=== PATIENT | female | born 1990 | race Caucasian/White ===

== ENCOUNTER → 2017-08-27 | Outpatient (CLI) | payer BC ==
[2017-08-27 13:36] LABS: A TYPE INFLUENZA AG NEGATIVE (NEGATIVE); B INFLUENZA AG NEGATIVE (NEGATIVE)
== END ==
LOC: OD 12:42
PROVIDERS: ATTEND Nurse Practitioner Acute Care
DX: R68.89 Other general symptoms and signs (principal)
CPT/HCPCS: 87804

== ENCOUNTER 2018-01-06 11:28 | Outpatient (CLI) | payer BC, OTHER | END 2018-01-06 12:39 | disposition home or self-care (01) | LOC: LC 11:28 | PROVIDERS: ATTEND Obstetrics & Gynecology | PROC: 4A1HXCZ Monitoring of Products of Conception, Cardiac Rate, External Approach (ICD-10-PCS; principal; 2018-01-06) | DX: O10.913 Unspecified pre-existing hypertension complicating pregnancy, third trimester (principal); Z3A.32 32 weeks gestation of pregnancy | CPT/HCPCS: 59025 ==

== ENCOUNTER 2018-01-14 17:33 | Outpatient (CLI) | payer BC ==
--- NOTE | 2018-01-14 17:44 | Non Stress Test Report ---
Non Stress Test Datetime Report Generated by CPN: 01/14/2018 17:43 DEMOGRAPHIC EGA NST: 33.4 EGA NST: 32.4 INDICATION Indication for Study: Gestational Hypertension; Diabetes Mellitus; Ordered by Provider Indication for Study: Diabetes Mellitus; Chronic Hypertension MONITORING Monitor Explained: Monitor Explained; Test Explained; Patient Verbalized Understanding Time on Monitor: 01/13/2018 16:04 Time on Monitor: 01/06/2018 11:37 Time off Monitor: 01/13/2018 17:54 NST Duration: 110 NST INTERVENTIONS NST Interventions: PO Hydration; Reposition Patient NST Interventions: PO Hydration; Reposition Patient Physician Notified NST: DrPeyton Santizo BABY A: [id number] BABY A Movement : Present Contraction Frequency : none FHR Baseline : 135 Accelerations : 15X15 Decelerations : None Variability : Moderate 6-25bpm NST Review: Meets Criteria for Reactive NST NST Review: Meets Criteria for Reactive NST NST Review and Verified By : Nakul Murrieta RN NST Results: Reactive NST REPORT Report Trigger: Send Report
[2018-01-14 18:23] LABS: URINE PROTEIN 14.4 mg/dL (<12)
[2018-01-14 18:25] LABS: 24 HOUR URINE PROTEIN RESULT 138 mg/day (42-225)
== END 2018-01-14 18:36 | disposition home or self-care (01) ==
LOC: LC 17:33
PROVIDERS: ATTEND Obstetrics & Gynecology
PROC: 4A1HXCZ Monitoring of Products of Conception, Cardiac Rate, External Approach (ICD-10-PCS; principal; 2018-01-14)
DX: O24.419 Gestational diabetes mellitus in pregnancy, unspecified control (principal); O10.913 Unspecified pre-existing hypertension complicating pregnancy, third trimester; Z3A.32 32 weeks gestation of pregnancy
CPT/HCPCS: 59025; 84156

== ENCOUNTER 2018-01-22 12:24 | Outpatient (CLI) | payer BC ==
[2018-01-22 13:16] LABS: APPEARANCE,URINE CLEAR; BILIRUBIN,URINE NEGATIVE (NEGATIVE); COLOR,URINE YELLOW; GLUCOSE, URINE NEGATIVE (NEGATIVE); KETONES,URINE NEGATIVE (NEGATIVE); LEUKOCYTE ESTERASE,URINE TRACE (NEGATIVE); NITRITE,URINE NEGATIVE (NEGATIVE); PROTEIN,URINE 30 mg/dL (NEGATIVE); URINE SPECIFIC GRAVITY 1.016; UROBILINOGEN,URINE NEGATIVE mg/dL (<2.0)
[2018-01-22 13:35] LABS: URINE AMPHETAMINES SCREEN NEGATIVE; URINE BARBITURATES SCREEN NEGATIVE; URINE BENZODIAZEPINES SCREEN NEGATIVE; URINE COCAINE SCREEN NEGATIVE; URINE MARIJUANA (THC) SCREEN NEGATIVE; URINE METHADONE SCREEN NEGATIVE; URINE PHENCYCLIDINE SCREEN NEGATIVE
--- NOTE | 2018-01-22 13:45 | Non Stress Test Report ---
Non Stress Test Datetime Report Generated by CPN: 01/22/2018 13:45 DEMOGRAPHIC Test Number: 4 EGA NST: 34.6 INDICATION Indication for Study: Ordered by Provider MONITORING Monitor Explained: Monitor Explained; Test Explained; Patient Verbalized Understanding Time on Monitor: 01/22/2018 12:43 Time off Monitor: 01/22/2018 13:18 NST Duration: 35 NST INTERVENTIONS NST Interventions: None Physician Notified NST: Dr. Alverto BABY A: [id number] BABY A Movement : Present Contraction Frequency : 2-3 FHR Baseline : 140 Accelerations : 15X15 Decelerations : None Variability : Moderate 6-25bpm NST Review: Meets Criteria for Reactive NST NST Review and Verified By : Kristian Burdick RN NST Results: Reactive NST REPORT Report Trigger: Send Report
[2018-01-22 13:58] LABS: AMNISURE (ROM) NEGATIVE (NEGATIVE)
[2018-01-22] MEDS ORDERED: RINGERS SOLUTION,LACTATED 1,000 ML IV PRN (14:08)
[2018-01-22] MEDS ORDERED: TERBUTALINE SULFATE INJ/PF 1 MG/1 ML SDV SUBCUT ONE (14:08)
[2018-01-22] MEDS ORDERED: TERBUTALINE SULFATE INJ/PF 1 MG/1 ML SDV ONE (14:24)
[2018-01-22] MEDS ORDERED: HYDROXYZINE PAMOATE 50 MG CAPSULE PO ONE (16:05)
[2018-01-22] MEDS ORDERED: HYDROXYZINE PAMOATE 50 MG CAPSULE ONE (16:12)
== END 2018-01-22 16:35 | disposition home or self-care (01) ==
LOC: LC 12:24
PROVIDERS: ATTEND Obstetrics & Gynecology
PROC: 4A1HXCZ Monitoring of Products of Conception, Cardiac Rate, External Approach (ICD-10-PCS; principal; 2018-01-22)
DX: O60.03 Preterm labor without delivery, third trimester (principal); Z3A.34 34 weeks gestation of pregnancy
CPT/HCPCS: 59025; 84112; 81001; 80307; J3105

== ENCOUNTER 2018-01-23 16:11 | Inpatient (IN) | payer BC ==
--- NOTE | 2018-01-23 17:24 | Non Stress Test Report ---
Non Stress Test Datetime Report Generated by CPN: 01/23/2018 17:24 DEMOGRAPHIC Test Number: 5 EGA NST: 35.0 INDICATION Indication for Study: Ordered by Provider MONITORING Monitor Explained: Monitor Explained; Test Explained; Patient Verbalized Understanding Time on Monitor: 01/23/2018 16:38 Time off Monitor: 01/23/2018 17:21 NST Duration: 43 NST INTERVENTIONS NST Interventions: None Physician Notified NST: Dr. Jacobo BABY A: [id number] BABY A Movement : Present Contraction Frequency : Occ FHR Baseline : 145 Accelerations : 15X15 Decelerations : None Variability : Moderate 6-25bpm NST Review: Meets Criteria for Reactive NST NST Review and Verified By : Norah Harrison RN NSBrenton Results: Reactive NST REPORT Report Trigger: Send Report
[2018-01-23] MEDS ORDERED: ACETAMINOPHEN 325 MG TABLET ONE (17:40)
[2018-01-23 17:41] LABS: APPEARANCE,URINE SLIGHTLY-CLOUDY; BILIRUBIN,URINE NEGATIVE (NEGATIVE); COLOR,URINE YELLOW; GLUCOSE, URINE 50 mg/dL (NEGATIVE); KETONES,URINE TRACE mg/dL (NEGATIVE); LEUKOCYTE ESTERASE,URINE MODERATE (NEGATIVE); NITRITE,URINE NEGATIVE (NEGATIVE); PROTEIN,URINE 100 mg/dL (NEGATIVE); URINE SPECIFIC GRAVITY 1.026
[2018-01-23 17:53] LABS: URINE AMPHETAMINES SCREEN NEGATIVE; URINE BARBITURATES SCREEN NEGATIVE; URINE BENZODIAZEPINES SCREEN NEGATIVE; URINE COCAINE SCREEN NEGATIVE; URINE MARIJUANA (THC) SCREEN NEGATIVE; URINE METHADONE SCREEN NEGATIVE; URINE PHENCYCLIDINE SCREEN NEGATIVE
[2018-01-23 18:04] LABS: ABSOLUTE EOSINOPHILS # (AUTO) 0.1 10^3/uL (0.0-0.6); ABSOLUTE LYMPHOCYTES (AUTO) 1.5 10^3/uL (0.5-4.7); ABSOLUTE MONOCYTES (AUTO) 0.5 10^3/uL (0.1-1.4); BASOPHILS % (AUTO) 0.2 % (0-2); HEMATOCRIT 28.1 % (36.0-47.0); HEMOGLOBIN 9.5 g/dL (12.0-15.5); LYMPHOCYTES % (AUTO) 21.2 % (13-45); MEAN CORPUSCULAR HEMOGLOBIN 27.3 pg (27.0-33.4); MEAN CORPUSCULAR HGB CONC 33.9 g/dL (32.0-36.0); MEAN CORPUSCULAR VOLUME 81 fl (80-97); MONOCYTES % (AUTO) 7.5 % (3-13); PLATELET COUNT 288 10^3/uL (150-450); RED BLOOD COUNT 3.48 10^6/uL (3.72-5.28); RED CELL DISTRIBUTION WIDTH 15.4 % (11.5-14.0); SEGMENTED NEUTROPHILS % (AUTO) 70.1 % (42-78); TOTAL CELLS COUNTED % (AUTO) 100 %; WHITE BLOOD COUNT 7.1 10^3/uL (4.0-10.5)
[2018-01-23 18:12] LABS: ALANINE AMINOTRANSFERASE 19 U/L (9-52); ALBUMIN 3.2 g/dL (3.5-5.0); ALKALINE PHOSPHATASE 113 U/L (38-126); ANION GAP 10 (5-19); ASPARTATE AMINO TRANSFERASE 16 U/L (14-36); BILIRUBIN,DIRECT 0.3 mg/dL (0.0-0.4); BILIRUBIN,TOTAL 0.4 mg/dL (0.2-1.3); BLOOD UREA NITROGEN 7 mg/dL (7-20); CALCIUM 8.4 mg/dL (8.4-10.2); CARBON DIOXIDE 22 mmol/L (22-30); CHLORIDE 110 mmol/L (98-107); GLUCOSE 73 mg/dL (75-110); LDH OLD 335 U/L (313-618); POTASSIUM 4.3 mmol/L (3.6-5.0); TOTAL PROTEIN 5.8 g/dL (6.3-8.2)
[2018-01-23 18:13] LABS: UR PRO/CREAT RATIO RESULT 0.2 mg/mg (0.0-0.2); URINE CREATININE 205.7 mg/dL (16-327); URINE PROTEIN 30.9 mg/dL (<12)
[2018-01-23] MEDS ORDERED: PROMETHAZINE HCL 25 MG TABLET PO ONE (18:43)
[2018-01-23] MEDS ORDERED: PROMETHAZINE HCL 25 MG TABLET ONE (18:54)
[2018-01-23] MEDS ORDERED: MAGNESIUM SULFATE 20 GM/500 ML RTUINJ IV ONE (20:44)
[2018-01-23] MEDS ORDERED: LABETALOL HCL 200 MG TABLET ONE (20:44)
[2018-01-23] MEDS ORDERED: MAGNESIUM SULFATE 4 GM/100 ML RTUPB IV ONE ×2 (20:44→21:00)
[2018-01-23] MEDS ORDERED: MAGNESIUM SULFATE 20 GM/500 ML RTUINJ IV PRN (21:00)
[2018-01-23] MEDS ORDERED: DINOPROSTONE 10 MG VAGINAL INSERT.SR PV ONE (21:00)
--- NOTE | 2018-01-23 21:02 | Admission Physical ---
Datetime Report Generated by CPN: 01/23/2018 21:02 CURRENT ADMISSION Chief Complaint Other: Headache Indication for Induction: PreEclampsia Admit Impression : , Intrauterine Admit Plan: Admit to Unit; Initiate Labor Induction Protocol Admit Plan- Other: Begin Magnesium ALLERGIES Medication Allergies: No Medication Allergies: No Known Allergies (01/23/2018) Latex: No Latex Allergies Food Allergies: none Environmental Allergies: none OBSTETRICAL HISTORY EDC: 02/27/2018 00:00 : 2 Para: 1 Term: 0 : 1 SAB: 0 IAB: 0 Ectopic: 0 Livin Cesareans: 0 VBACs: 0 Multiple Births: 0 Gestational Diabetes: Yes Rh Sensitization: No Incompetent Cervix: No MICKY: No Infertility: No ART Treatment: No Uterine Anomaly: No IUGR: No Hx Previous C/S: No Macrosomia: No Hx Loss/Stillborn: No PIH: Yes Hx : No Placenta Previa/Abruption: No Depression/PP Depression: No PTL/PROM: No Post Hemorrhage: No Current Procedures: Ultrasound; NST Obstetrical History Comments: G1- Severe Pre-E, IOL 33 weeks G2- Current SEE RECORDS Alcohol: No Marijuana : No Cocaine: No Other Illicit Drugs: No Cigarettes: Never Smoker. 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 Surgery: No Heart Disease: No Hosp/Surgery: Yes Autoimmune Disorder: No Anesthetic Complications: No Kidney Disease: No Abnormal Pap Smear: Yes Neuro/Epilepsy: No Psychiatric Disorders: No Other Medical Diseases: No Hepatitis/Liver Disease: No Significant Family History: No Varicosities/Phlebitis: No Trauma/Violence : No Thyroid Dysfunction: No Medical History Comments: appendectomy 2008, childbirth, hx ab pap in 2014 INFECTIOUS HISTORY Gonorrhea: No Genital Herpes: No Chlamydia: Yes Tuberculosis: No Syphilis: No Hepatitis: No HIV/AIDS Exposure: No Rash or Viral Illness: No HPV: No Infectious History Comments: PHYSICAL EXAM General: Normal HEENT: Normal Neurologic: Normal Thyroid: Normal Heart: Normal Lungs: Normal Breast: Deferred Back: Normal Abdomen: Normal Genitourinary Exam: Normal Extremities: Normal DTRs: Normal Pelvic Type: Adequate Vital Signs: Reviewed VAGINAL EXAM Dilatation: 1 Effacement: 50 Station: -2 MEMBRANES Pooling: Negative Membranes: Intact FETUS A Monitoring: External US FHR- Baseline: 160 Variability: Moderate 6-25bpm Decelerations: None FHR Category: Category I Presentation: Vertex Admit Comment: Admit for severe range pressures and Headache. PLANS FOR LABOR AND DELIVERY Labor and Delivery: None Pain Management: Natural Feeding Preference: Formula Benefit of Breast Feed Discussed: Yes Circumcision: Yes INFORMED CONSENT Signature: with User ID: [email or web address]
[2018-01-23] MEDS ORDERED: DINOPROSTONE 10 MG VAGINAL INSERT.SR ONE (21:25)
[2018-01-23] MEDS ORDERED: ZOLPIDEM TARTRATE 5 MG TABLET PO ONE (23:00)
[2018-01-23] MEDS ORDERED: RINGERS SOLUTION,LACTATED 1,000 ML IV PRN (23:07)
[2018-01-24] MEDS ORDERED: ZOLPIDEM TARTRATE 5 MG TABLET ONE (00:28)
[2018-01-24] MEDS ORDERED: MAG HYDROX/AL HYDROX/SIMETH SUSP 30 ML UDCUP PO PRN (03:36)
[2018-01-24] MEDS ORDERED: RINGERS SOLUTION,LACTATED 300 ML IV ONE (03:36)
[2018-01-24] MEDS ORDERED: ACETAMINOPHEN 325 MG TABLET PO PRN ×2 (03:36→15:47)
[2018-01-24] MEDS ORDERED: PENICILLIN G POTASSIUM 2,500,000 UNIT in DEXTROSE 5%-WATER 50 ML IV SCH ×2 (04:00→10:00)
[2018-01-24] MEDS ORDERED: ACETAMINOPHEN 325 MG TABLET ONE ×3 (05:05→20:43)
[2018-01-24] MEDS ORDERED: MAGNESIUM SULFATE 0 GM/0 ML RTUPB IV ONE (07:52)
[2018-01-24] MEDS ORDERED: MAGNESIUM SULFATE 20 GM/500 ML RTUINJ IV ONE (08:21)
[2018-01-24 09:22] LABS: ABSOLUTE LYMPHOCYTES (AUTO) 1.1 10^3/uL (0.5-4.7); ABSOLUTE MONOCYTES (AUTO) 0.4 10^3/uL (0.1-1.4); ABSOLUTE NEUT (AUTO) 6.7 10^3/uL (1.7-8.2); BASOPHILS % (AUTO) 0.2 % (0-2); EOSINOPHILS % (AUTO) 0.3 % (0-6); HEMATOCRIT 28.7 % (36.0-47.0); HEMOGLOBIN 9.5 g/dL (12.0-15.5); LYMPHOCYTES % (AUTO) 13.6 % (13-45); MEAN CORPUSCULAR HEMOGLOBIN 27.1 pg (27.0-33.4); MEAN CORPUSCULAR HGB CONC 33.2 g/dL (32.0-36.0); MEAN CORPUSCULAR VOLUME 82 fl (80-97); MONOCYTES % (AUTO) 4.6 % (3-13); PLATELET COUNT 290 10^3/uL (150-450); RED BLOOD COUNT 3.52 10^6/uL (3.72-5.28); RED CELL DISTRIBUTION WIDTH 15.6 % (11.5-14.0); SEGMENTED NEUTROPHILS % (AUTO) 81.3 % (42-78); TOTAL CELLS COUNTED % (AUTO) 100 %; WHITE BLOOD COUNT 8.3 10^3/uL (4.0-10.5)
[2018-01-24] MEDS ORDERED: MAGNESIUM SULFATE 20 GM/500 ML RTUINJ IV PRN (09:31)
[2018-01-24 09:36] LABS: ALANINE AMINOTRANSFERASE 10 U/L (9-52); ALBUMIN 3.1 g/dL (3.5-5.0); ALKALINE PHOSPHATASE 122 U/L (38-126); ANION GAP 16 (5-19); ASPARTATE AMINO TRANSFERASE 20 U/L (14-36); BILIRUBIN,DIRECT 0.2 mg/dL (0.0-0.4); BILIRUBIN,TOTAL 0.2 mg/dL (0.2-1.3); BLOOD UREA NITROGEN 6 mg/dL (7-20); CALCIUM 7.2 mg/dL (8.4-10.2); CARBON DIOXIDE 17 mmol/L (22-30); CHLORIDE 106 mmol/L (98-107); GLUCOSE 178 mg/dL (75-110); LDH OLD 342 U/L (313-618); POTASSIUM 4.2 mmol/L (3.6-5.0); SODIUM 138.5 mmol/L (137-145); TOTAL PROTEIN 5.9 g/dL (6.3-8.2); URIC ACID 4.2 mg/dL (2.5-6.2)
[2018-01-24] MEDS ORDERED: PENICILLIN G POTASSIUM 5,000,000 UNIT in DEXTROSE 5%-WATER 100 ML IV ONE ×2 (10:00→11:00)
[2018-01-24] MEDS ORDERED: LABETALOL HCL 200 MG PO SCH (10:00)
[2018-01-24] MEDS ORDERED: ACETAMINOPHEN 325 MG TABLET PO ONE (10:26)
[2018-01-24] MEDS ORDERED: PROMETHAZINE HCL INJ 25 MG/1 ML VIAL IV ONE (12:40)
[2018-01-24] MEDS ORDERED: NALBUPHINE HCL INJ 10 MG/1 ML AMPULE INJ ONE (12:40)
[2018-01-24] MEDS ORDERED: OXYTOCIN/NORMAL SALINE 20 UNIT/1,000 ML RTUINJ IV PRN ×2 (12:45→15:47)
[2018-01-24] MEDS ORDERED: PROMETHAZINE HCL INJ 25 MG/1 ML VIAL ONE (12:54)
[2018-01-24] MEDS ORDERED: LIDOCAINE 1% INJ-PF (10 MG/ML) 30 ML SDV ONE (12:55)
[2018-01-24] MEDS ORDERED: NALBUPHINE HCL INJ 10 MG/1 ML AMPULE ONE (12:55)
[2018-01-24] MEDS ORDERED: MISOPROSTOL 0.2 MG TABLET ONE (12:55)
[2018-01-24] MEDS ORDERED: OXYTOCIN/NORMAL SALINE 20 UNIT/1,000 ML RTUINJ ONE ×2 (12:55→12:56)
[2018-01-24] MEDS ORDERED: PENICILLIN G-K 5 MILLION UNIT VIAL ONE (12:56)
[2018-01-24] MEDS ORDERED: PROMETHAZINE HCL 25 MG SUPP.RECT PR PRN (15:47)
[2018-01-24] MEDS ORDERED: DIPH/PERTUSS(ACELL)/TETANUS VAC/PF 0.5 ML SYR (>=10YO) IM PRN (15:47)
[2018-01-24] MEDS ORDERED: ACETAMINOPHEN WITH CODEINE #3 TABLET PO PRN ×2 (15:47)
[2018-01-24] MEDS ORDERED: GLYCERIN/WITCH HAZEL LEAF 1 EACH MED..PAD TP PRN (15:47)
[2018-01-24] MEDS ORDERED: MEASLES,MUMPS&RUBELLA VACC/PF 0.5 ML VIAL SUBCUT PRN (15:47)
[2018-01-24] MEDS ORDERED: MAGNESIUM HYDROXIDE SUSP 30 ML UDCUP PO PRN (15:47)
[2018-01-24] MEDS ORDERED: ACETAMINOPHEN 650 MG SUPP.RECT PR PRN (15:47)
[2018-01-24] MEDS ORDERED: PSEUDOEPHEDRINE HCL 30 MG TABLET PO PRN (15:47)
[2018-01-24] MEDS ORDERED: PROMETHAZINE HCL INJ 25 MG/1 ML VIAL IV PRN (15:47)
[2018-01-24] MEDS ORDERED: DIPHENHYDRAMINE HCL 25 MG CAPSULE PO PRN (15:47)
[2018-01-24] MEDS ORDERED: NA PHOS,M-B/NA PHOS,DI-BA (ADULT) 133 ML ENEMA PR PRN (15:47)
[2018-01-24] MEDS ORDERED: DIBUCAINE 1% OINTMENT 28 GM TP PRN (15:47)
[2018-01-24] MEDS ORDERED: PROMETHAZINE HCL 25 MG TABLET PO PRN (15:47)
[2018-01-24] MEDS ORDERED: ZOLPIDEM TARTRATE 5 MG TABLET PO PRN (15:47)
[2018-01-24] MEDS ORDERED: BENZOCAINE/MENTHOL AEROSOL SPRAY 56 ML TOP PRN (15:47)
[2018-01-24] MEDS ORDERED: LABETALOL HCL 200 MG TABLET ONE (18:07)
[2018-01-24] MEDS: LABETALOL HCL 200 MG TABLET PO SCH ×2 (18:08→23:20)
[2018-01-24] MEDS ORDERED: DIPHENHYDRAMINE HCL 25 MG CAPSULE ONE (20:42)
[2018-01-24] MEDS ORDERED: FERROUS SULFATE 325 MG TABLET PO ONE (20:56)
[2018-01-24] MEDS ORDERED: DOCUSATE SODIUM 100 MG CAPSULE ONE (20:56)
[2018-01-24] MEDS: FERROUS SULFATE 325 MG TABLET PO SCH (21:00)
[2018-01-24] MEDS: DOCUSATE SODIUM 100 MG CAPSULE PO SCH (21:00)
[2018-01-24] MEDS: FAMOTIDINE 20 MG TABLET PO SCH (23:21)
[2018-01-25] MEDS ORDERED: IBUPROFEN 800 MG TABLET ONE ×2 (00:15→05:40)
[2018-01-25] MEDS: IBUPROFEN 800 MG TABLET PO SCH ×4 (00:17→22:26)
--- NOTE | 2018-01-25 04:44 | L&D Progress Notes ---
PROGRESS NOTES Datetime Report Generated by CPN: 01/25/2018 04:43 PROGRESS NOTE Comment: BPs continue to be Mild range. Pt asymptomatic. Pt with very good diuresis and meets criteria for transfer to . Magnesium (has been running during antepartum and now for 12 hours pp) disconitnued and will monitor for 2 hours and transfer to floor if stable. Pt placed back on Labetolol 200mg po BID VAGINAL EXAM Dilatation: 1 Effacement: 50 Station: -2 MEMBRANES Pooling: Negative Membranes: Intact FETUS A : 35.0 Presentation: Vertex SIGNATURE SIGNATURE: [id number] SIGNATURE: [id number];,[id number] SIGNATURE: ,[id number] SIGNATURE: ,[id number] SIGNATURE: ,[id number] SIGNATURE: [id number] Signature: with User ID: [email or web address]
[2018-01-25] MEDS ORDERED: LABETALOL HCL 200 MG TABLET ONE (05:40)
[2018-01-25] MEDS: LABETALOL HCL 200 MG TABLET PO SCH ×2 (05:44→22:26)
[2018-01-25 08:24] LABS: HEMATOCRIT 29.3 % (36.0-47.0); HEMOGLOBIN 9.7 g/dL (12.0-15.5); MEAN CORPUSCULAR HEMOGLOBIN 26.9 pg (27.0-33.4); MEAN CORPUSCULAR HGB CONC 33.1 g/dL (32.0-36.0); MEAN CORPUSCULAR VOLUME 81 fl (80-97); PLATELET COUNT 291 10^3/uL (150-450); RED CELL DISTRIBUTION WIDTH 15.5 % (11.5-14.0); WHITE BLOOD COUNT 8.6 10^3/uL (4.0-10.5)
[2018-01-25] MEDS: FERROUS SULFATE 325 MG TABLET PO SCH ×2 (10:05→17:25)
[2018-01-25] MEDS: PRENATAL VITAMIN W DHA CAPSULE PO SCH (10:05)
[2018-01-25] MEDS: SENNOSIDES/DOCUSATE 8.6-50 MG 1 EACH TABLET PO SCH (10:06)
[2018-01-25] MEDS: DOCUSATE SODIUM 100 MG CAPSULE PO SCH ×2 (10:06→17:25)
[2018-01-25] MEDS: FAMOTIDINE 20 MG TABLET PO SCH ×2 (10:06→22:26)
[2018-01-26] MEDS: IBUPROFEN 800 MG TABLET PO SCH ×2 (06:22→13:02)
[2018-01-26] MEDS: PRENATAL VITAMIN W DHA CAPSULE PO SCH (09:30)
[2018-01-26] MEDS: FAMOTIDINE 20 MG TABLET PO SCH (09:30)
[2018-01-26] MEDS: SENNOSIDES/DOCUSATE 8.6-50 MG 1 EACH TABLET PO SCH (09:30)
[2018-01-26] MEDS: DOCUSATE SODIUM 100 MG CAPSULE PO SCH ×2 (09:30→17:27)
[2018-01-26] MEDS: FERROUS SULFATE 325 MG TABLET PO SCH ×2 (09:30→17:27)
[2018-01-26] MEDS: LABETALOL HCL 200 MG TABLET PO SCH (09:31)
--- NOTE | 2018-01-26 11:01 | PDOC DISCHARGE SUMMARY ---
Final Diagnosis Discharge Date: 01/26/18 - Final Diagnosis (1) Periurethral laceration, delivered, current hospitalization Is this a current diagnosis for this admission?: Yes (2) Pre-eclampsia Is this a current diagnosis for this admission?: Yes (3) Vaginal delivery Is this a current diagnosis for this admission?: Yes Discharge Data - Discharge Medication Prescriptions: Ibuprofen [Motrin 800 mg Tablet] 800 mg PO Q8 #60 tablet Labetalol HCl [Normodyne 200 mg Tablet] 200 mg PO Q12 #60 tablet Home Medications: No122/Iron/Folic Acid [ Multi Tablet] 1 tab PO DAILY 06/04/16 Ferrous Sulfate [Iron] 325 mg PO DAILY 01/22/18 Ibuprofen [Motrin 800 mg Tablet] 800 mg PO Q8 #60 tablet 01/26/18 Labetalol HCl [Normodyne 200 mg Tablet] 200 mg PO Q12 #60 tablet 01/26/18 Reason(s) for Admission: Induction of Labor Admission Note: , severe Pre Eclampsia Procedures: NST, Management of Obstetric Complications Intrapartum Procedure(s): Spontaneous Vaginal Delivery Complication(s): Laceration-Periurethral Laceration-Degree: 1st - Diagnosis Test Laboratory: Temp Pulse Resp BP Pulse Ox 98.1 F 60 20 162/87 H 97 01/26/18 07:41 01/26/18 07:41 01/26/18 07:41 01/26/18 07:41 01/26/18 07:41 01/23/18 01/23/18 01/24/18 16:16 17:47 09:00 RBC 3.48 L 3.52 L Hgb 9.5 L 9.5 L Hct 28.1 L 28.7 L Urine Opiates Screen NEGATIVE 01/25/18 08:09 RBC 3.60 L Hgb 9.7 L Hct 29.3 L Urine Opiates Screen - Discharge information/Instructions Discharge Activity: Balance Activity w/Rest, Pelvic Rest Discharge Diet: Regular Disposition: HOME, SELF-CARE Follow up with: [facility] in: 4, Weeks
[2018-01-26 17:13] VITALS: BP 146/73
--- NOTE | 2018-02-01 08:43 | Delivery Summary ---
Del Sum A-C Datetime Report Generated by CPN: 02/01/2018 08:42 DELIVERY PERSONNEL DELIVERY PERSONNEL: [id number] Delivery Doctor:: Korina May CNM Labor and Delivery Nurse:: shayna blunt RNlining baster Nurse:: Shahana Brothers RN Nursery Nurse:: Mely Armendariz RN Environmental Engineering Aide/NURSE STAFF: Lila Ross, CASH MANAGEMENT OFFICER Environmental Engineering Aide/NURSE STAFF: Kathy Spaulding, CASH MANAGEMENT OFFICER MATERNAL INFORMATION Delivery Anesthesia: None Medications After Delivery: Pitocin Bolus-Please Comment Meds After Delivery Comment: Pitocin 20 units in 1 L NS bolusing for 500 mLs, then running at 100mL/hr Maternal Complications: None Provider Comments: pt. with strong urge to push and found to be 8cm per RN exam then progressed to 9cm and started unvoluntarily pushing. Progressed to c/c/+2 then quickly delivered a viable baby boy. Nursery in room for delivery. Baby with spontaneous respiratory effort and cry and placed on maternal abdomen. Cord allowed to stop pulsating then clamped x2 and cut by FOB(3vc noted). Placenta delivered spontaneously intact, lacerations as stated. Mother and baby skin to skin and bonding at this time. Nursery remains in room with baby. LABOR SUMMARY EDC: 02/27/2018 00:00 No. Babies in Womb: 1 Attempted: No Labor Anesthesia: None LABOR INFORMATION Reason for Induction: Gestational Hypertension Onset of Labor: 01/24/2018 12:28 Complete Dilatation: 01/24/2018 15:14 Cervical Ripening Agents: Cervidil Cervical Ripening Agents: Cervidil (Annotations: 10mg per vagina in the posterior fornix ) Oxytocin: Induction Group B Beta Strep: Positive Antibiotics # of Doses: 1 Antibiotics Time of Last Dose: 1305 Name of Antibiotic Given: penicillin Steroids Given: None Reason Steroids Not Administered: Not Applicable MEMBRANES Membranes Rupture Method: Artificial Rupture of Membranes: 01/24/2018 12:28 Length of Rupture (hr): 2.80 Amniotic Fluid Color: Clear Amniotic Fluid Amount: Scant Amniotic Fluid Odor: Normal STAGES OF LABOR Stage 1 hr: 2 Stage 1 min: 46 Stage 2 hr: 0 Stage 2 min: 2 Stage 3 hr: 0 Stage 3 min: 7 Total Time in Labor hr: 2 Total Time in Labor min: 55 VAGINAL DELIVERY Episiotomy: None Laceration #1: Periurethral Laceration Extension #1: N/A Other Laceration: vaginal abrasion Laceration Repair: Yes Laceration Repair Note: periurethral superficial laceration that was not hemostatic approximated with a 3-0 SH. hemostatic,no other lacerations noted. Sponge Count Correct: N/A Sharps Count Correct: Yes CSECTION DELIVERY Primary Indication: N/A Secondary Indication: N/A CSection Incidence: N/A Labor: N/A Elective: N/A CSection Incision: N/A BABY A INFORMATION Delivery Date/Time: 01/24/2018 15:16 Method of Delivery: Vaginal Method of Delivery: Vaginal Born in Route : No : N/A Forceps: N/A Vacuum Extraction: N/A Shoulder Dystocia : No PRESENTATION/POSITION BABY A Presentation: Cephalic Cephalic Presentation: Vertex Vertex Position: Right Occipital Anterior Breech Presentation: N/A PLACENTA INFORMATION BABY A Placenta Delivery Time : 01/24/2018 15:23 Placenta Method of Delivery: Spontaneous Placenta Status: Delivered SCORES BABY A Heart Rate 1 min: >100 bpm Resp Effort 1 min: Good Cry Reflex Irritability 1 min: Cough or Sneeze or Pulls Away Muscle Tone 1 min: Some Flexion of Extremities Color 1 min: Body [place], Extremities Blue SCORE 1 MIN: 8 Heart Rate 5 min: >100 bpm Resp Effort 5 min: Good Cry Reflex Irritability 5 min: Cough or Sneeze or Pulls Away Muscle Tone 5 min: Some Flexion of Extremities Color 5 min: Body [place], Extremities Blue SCORE 5 MIN: 8 INFORMATION BABY A Gestational Age at Delivery: 35.1 Gestational Status: Late - 34- 36.6 Weeks Outcome : Liveborn Infant Condition : Stable Sex: Male Sex: Male IDENTIFICATION BABY A Verification Date/Time: 01/24/2018 16:23 ID Band Number: [id number] Mother's Name Verified: Yes RN Verifying : Adalberto Blunt RN Additional Verifying Personnel: Norah Armendariz RN WEIGHT/LENGTH BABY A Birthweight (gm): 2817 Infant Weight (lb): 6 Infant Weight (oz): 3 Infant Length (in): 18.00 Length (cm): 45.72 CORD INFORMATION BABY A No. Cord Vessels: 3 Nuchal Cord : N/A Cord Blood Taken: Yes-For Eval (Mom's Blood Type - or O+) Suction: Nose ASSESSMENT BABY A Skin to Skin: Yes Skin to Skin Time (min): 60 Cut In Station Operator/ALS Called : No Infant Care By: Norah Hanson RN/Norah Armendariz Transferred To: Remains with Mother BABY B INFORMATION : N/A SIGNATURES Assignment: Lea Booker MD Signature: with User ID: Anita : with User ID: [email or web address]
== END 2018-01-26 18:10 | disposition home or self-care (01) | DRG 775 ==
LOC: LC 16:11 → LR 21:15 → 2S 01-25 06:19
PROVIDERS: ADMIT Obstetrics & Gynecology; ATTEND Obstetrics & Gynecology
PROC: 4A1HXCZ Monitoring of Products of Conception, Cardiac Rate, External Approach (ICD-10-PCS; 2018-01-23)
PROC: 10E0XZZ Delivery of Products of Conception, External Approach (ICD-10-PCS; principal; 2018-01-24)
PROC: 0UQMXZZ Repair Vulva, External Approach (ICD-10-PCS; 2018-01-24)
PROC: 10907ZC Drainage of Amniotic Fluid, Therapeutic from Products of Conception, Via Natural or Artificial Opening (ICD-10-PCS; 2018-01-24)
PROC: 3E0P7VZ Introduction of Hormone into Female Reproductive, Via Natural or Artificial Opening (ICD-10-PCS; 2018-01-24)
PROC: 3E033VJ Introduction of Other Hormone into Peripheral Vein, Percutaneous Approach (ICD-10-PCS; 2018-01-24)
DX: O14.14 Severe pre-eclampsia complicating childbirth (principal); O71.82 Other specified trauma to perineum and vulva; O24.429 Gestational diabetes mellitus in childbirth, unspecified control; O99.824 Streptococcus B carrier state complicating childbirth; Z37.0 Single live birth
CPT/HCPCS: 36415; 80053; 80307; 81001; 82570; 82962; 83615; 84156; 84550; 85025; 85027; 86592; 86850; 86900; 86901; 94760; C1726; J2300; J2540; J2550; J2590; J3475; J3490

== ENCOUNTER → 2018-03-02 | Outpatient (CLI) | payer BC | LOC: OD 13:34 | PROVIDERS: ATTEND Advanced Practice Midwife | DX: Z30.018 Encounter for initial prescription of other contraceptives (principal) | CPT/HCPCS: 36415; 84702 ==